=== PATIENT | male | born 1940 | race Hispanic/Latino ===

== ENCOUNTER → 2017-05-19 | Outpatient (CLI) | payer OTHER ==
[~2017-05-19] MED LIST: ASPI-1197 PO; MULT-1259 PO; OLME1TAB7 PO; TAMS0.4C32 PO
[2017-05-19 10:54] LABS: CREATININE 1.2 mg/dL (0.5-1.5)
== END | disposition home or self-care (01) ==
LOC: LAB 09:49
PROVIDERS: ATTEND Neurological Surgery
DX: M48.062 Spinal stenosis, lumbar region with neurogenic claudication (principal)
CPT/HCPCS: 36415; 82565; 84520

== ENCOUNTER → 2017-06-06 | Outpatient (CLI) | payer OTHER | END | disposition home or self-care (01) | LOC: RAH 08:47 | PROVIDERS: ATTEND Neurological Surgery | DX: I70.213 Atherosclerosis of native arteries of extremities with intermittent claudication, bilateral legs (principal); M48.062 Spinal stenosis, lumbar region with neurogenic claudication | CPT/HCPCS: 93925 ==

== ENCOUNTER 2017-11-17 13:30 | Observation (INO) | payer OTHER, MEDICARE ==
[~2017-11-17] VITALS: Ht 175.3 cm; Wt 113.4 kg
[~2017-11-17 13:30] MED LIST changes: -ASPI-1197 PO; -MULT-1259 PO
[2017-11-17 14:48] LABS: BASOPHILS % (AUTO) 0.6 % (0.0-5.0); EOSINOPHILS % (AUTO) 1.3 % (0.0-8.0); HEMATOCRIT 45.7 % (42-54); LYMPHOCYTES % (AUTO) 16.5 % (21.0-51.0); MEAN CORPUSCULAR HEMOGLOBIN 29.5 pg (27.0-33.0); MEAN CORPUSCULAR HGB CONC 33.3 g/dL (32.0-36.0); MEAN CORPUSCULAR VOLUME 88.6 fL (79-99); NEUTROPHILS % (AUTO) 74.6 % (40.0-77.0); PLATELET COUNT (AUTO) 211 K/uL (130-400); RED BLOOD CELL COUNT(AUTO) 5.15 MIL/uL (4.50-6.20); RED CELL DISTRIBUTION WIDTH 13.6 % (11.0-15.5)
[2017-11-17 14:56] LABS: CREATININE 1.1 mg/dL (0.5-1.5); POTASSIUM 4.4 mmol/L (3.5-5.1)
[2017-11-17 15:24] VITALS: BP 140/89
[2017-11-22] VITALS (23 sets, daily range): BP systolic 94–149; BP diastolic 56–89
[2017-11-22] MEDS ORDERED: LACTATED RINGERS 1000ML 1,000 ML IV ONE (06:46)
[2017-11-22] MEDS ORDERED: CEFAZOLIN SODIUM 1 GM VIAL ONE ×3 (06:47→11:38)
[2017-11-22] MEDS ORDERED: DURAMORPH PF1 MG/ML 10ML AMP IV ONE (06:50)
[2017-11-22] MEDS ORDERED: BACITRACIN 50,000 UNIT VIAL ONE (06:51)
[2017-11-22] MEDS ORDERED: THROMBIN-JMI 20000 UNIT KIT TP ONE (06:51)
[2017-11-22] MEDS ORDERED: LIDOCAINE PF 2% 5ML ABBOJECT ONE (06:56)
[2017-11-22] MEDS ORDERED: MIDAZOLAM HCL 1 MG/ML 2ML VIAL ONE (06:57)
[2017-11-22] MEDS ORDERED: DEXAMETHASONE SOD PHOSPHATE 10MG/ML 1ML VIAL ONE ×2 (06:57→07:00)
[2017-11-22] MEDS ORDERED: PROPOFOL 10 MG/ML 20ML VIAL IV ONE ×2 (06:57→10:26)
[2017-11-22] MEDS ORDERED: FENTANYL CITRATE PF 50 MCG/1 ML 2ML VIAL ONE ×4 (06:58→11:13)
[2017-11-22] MEDS ORDERED: ONDANSETRON HCL 4 MG/2 ML VIAL ONE ×2 (06:58→11:35)
[2017-11-22] MEDS ORDERED: NEOSTIGMINE 5MG/5ML SYR IV ONE (06:58)
[2017-11-22] MEDS ORDERED: ROCURONIUM 10MG/1ML SYR 10 MG/ML ML ONE (06:58)
[2017-11-22 06:59] LABS: BASOPHILS % (AUTO) 0.7 % (0.0-5.0); EOSINOPHILS % (AUTO) 1.7 % (0.0-8.0); HEMATOCRIT 43.6 % (42-54); LYMPHOCYTES % (AUTO) 17.9 % (21.0-51.0); MEAN CORPUSCULAR HEMOGLOBIN 30.2 pg (27.0-33.0); MEAN CORPUSCULAR HGB CONC 33.8 g/dL (32.0-36.0); MEAN CORPUSCULAR VOLUME 89.3 fL (79-99); MONOCYTES % (AUTO) 7.6 % (3.0-13.0); NEUTROPHILS % (AUTO) 72.1 % (40.0-77.0); PLATELET COUNT (AUTO) 197 K/uL (130-400); RED BLOOD CELL COUNT(AUTO) 4.88 MIL/uL (4.50-6.20); RED CELL DISTRIBUTION WIDTH 13.6 % (11.0-15.5); WHITE BLOOD COUNT (AUTO) 9.7 K/uL (4.8-10.8)
[2017-11-22] MEDS ORDERED: GLYCOPYRROLATE 1 MG/5 ML SYRINGE ONE (06:59)
[2017-11-22] MEDS ORDERED: SUCCINYLCHOLINE CHLORIDE 20 MG/ML 10 ML VIAL ONE (07:01)
[2017-11-22] MEDS ORDERED: BUPIVACAINE/EPI/PF 0.25% 30ML VIAL IJ ONE (07:14)
[2017-11-22] MEDS ORDERED: EPHEDRINE SULFATE 50 MG/ML AMPULE ONE (07:56)
[2017-11-22] MEDS ORDERED: CEFAZOLIN SODIUM 1 GM VIAL IVP ONE (08:00)
[2017-11-22] MEDS ORDERED: PHENYLEPHRINE HCL 10 MG/ML 1ML VIAL IV ONE ×2 (08:15→09:58)
[2017-11-22] MEDS ORDERED: LIDOCAINE HCL 2% JELLY 5 ML ONE (08:15)
[2017-11-22] MEDS: LACTATED RINGERS 1000ML 1,000 ML IV SCH (11:48)
[2017-11-22] MEDS ORDERED: HYDROCODONE/ACETAMINOPHEN 5/325 MG TAB PO PRN (12:00)
[2017-11-22] MEDS ORDERED: SODIUM CHLORIDE 0.9% 10 ML VIAL IVP PRN (12:00)
[2017-11-22] MEDS ORDERED: MORPHINE SULFATE 2 MG/ML 1ML SYG IVP PRN (12:00)
[2017-11-22] MEDS ORDERED: PROMETHAZINE HCL 25 MG/ML 1ML AMPULE IM PRN (12:00)
[2017-11-22] MEDS: DEXAMETHASONE SOD PHOSPHATE 4 MG/ML 1ML VIAL IVP SCH ×2 (13:53→23:43)
[2017-11-22] MEDS ORDERED: CEFAZOLIN SODIUM 1 GM VIAL IVP SCH (14:15)
[2017-11-23 00:08] VITALS: BP 148/85
[2017-11-23] MEDS: LACTATED RINGERS 1000ML 1,000 ML IV SCH (01:10)
[2017-11-23 04:55] VITALS: BP 149/74
[2017-11-23] MEDS: DEXAMETHASONE SOD PHOSPHATE 4 MG/ML 1ML VIAL IVP SCH (05:33)
[2017-11-23 08:00] VITALS: BP 156/81
[2017-11-23] MEDS ORDERED: TAMSULOSIN HCL 0.4 MG CAP.ER.24H PO SCH (09:00)
[2017-11-23] MEDS ORDERED: OLMESARTAN PO SCH (09:00)
[2017-11-23] MEDS ORDERED: HYDROCHLOROTHIAZIDE PO SCH (09:00)
== END 2017-11-23 11:25 | disposition home or self-care (01) ==
LOC: DAHIP 11-22 06:16 → 4BH 11-22 12:41
PROVIDERS: ADMIT Neurological Surgery; ATTEND Neurological Surgery
DX: M48.07 Spinal stenosis, lumbosacral region (principal); M54.16 Radiculopathy, lumbar region
CPT/HCPCS: 36415 ×2; 63047; 63048 ×2; 72020; 80048; 85025 ×2; 96374; 96375; 96376 ×2; A4344; A4510; A4600 ×2; A4649 ×4; G0378 ×30; J0330; J0690 ×3; J1100 ×6; J2001; J2250; J2274; J2370 ×2; J2405 ×2; J2704 ×2; J2710; J3010 ×4; J3490 ×3; J7030; J7120 ×2

== ENCOUNTER 2020-09-24 07:32 | Day surgery (SDC) | payer OTHER, MEDICARE ==
[2020-09-18 13:19] LABS: BASOPHILS % (AUTO) 0.6 % (0.0-5.0); EOSINOPHILS % (AUTO) 2.3 % (0.0-8.0); HEMATOCRIT 44.4 % (42-54); LYMPHOCYTES % (AUTO) 14.7 % (21.0-51.0); MEAN CORPUSCULAR HEMOGLOBIN 29.5 pg (27.0-33.0); MEAN CORPUSCULAR HGB CONC 32.7 g/dL (32.0-36.0); MEAN CORPUSCULAR VOLUME 90.4 fL (79-99); MONOCYTES % (AUTO) 7.6 % (3.0-13.0); PLATELET COUNT (AUTO) 260 K/uL (130-400); RED BLOOD CELL COUNT(AUTO) 4.91 MIL/uL (4.50-6.20); RED CELL DISTRIBUTION WIDTH 13.9 % (11.0-15.5); WHITE BLOOD COUNT (AUTO) 10.2 K/uL (4.8-10.8)
[2020-09-18 13:19] LABS: APPEARANCE,URINE Clear (CLEAR); BILIRUBIN,URINE Negative (NEGATIVE); COLOR,URINE Yellow (YELLOW); GLUCOSE, URINE (UA) Negative (NEGATIVE); KETONES,URINE Negative (NEGATIVE); LEUKOCYTE ESTERASE ,URINE Moderate (NEGATIVE); NITRATE,URINE Negative (NEGATIVE); OCCULT BLOOD,URINE Small (NEGATIVE); PH,URINE 6.5 (5.0-8.0); PROTEIN,URINE POS 1+ mg/dL (NEGATIVE)
[2020-09-18 13:26] LABS: POTASSIUM 4.7 mmol/L (3.5-5.1)
[2020-09-18 13:29] LABS: INR 1.15 (0.85-1.15); PROTHROMBIN TIME 12.4 SEC (9.6-11.6)
[2020-09-18 13:30] LABS: PARTIAL THROMBOPLASTIN TIME 31.7 SEC (26.3-35.5)
[2020-09-18 13:56] LABS: BACTERIA,URINE Few /HPF (None Seen); YEAST,URINE BUDDING Moderate /HPF (None Seen)
[2020-09-18 13:57] LABS: CALCIUM OXALATE CRYSTALS,UR Few /LPF (None Seen); MUCUS,URINE Few LPF (None Seen); SQUAMOUS EPITHELIAL CELL,UR Rare /HPF (0-2)
[2020-09-20 09:02] VITALS: BP 142/77
[~2020-09-24] VITALS: Ht 176.5 cm; Wt 105.1 kg
[2020-09-24] VITALS (16 sets, daily range): BP systolic 138–170; BP diastolic 74–90
[~2020-09-24 07:32] MED LIST changes: +AEC81 PO; +LEVO500P29 IV
[2020-09-24] MEDS ORDERED: LACTATED RINGERS 1000ML 1,000 ML IV ONE (07:42)
[2020-09-24] MEDS ORDERED: GENTAMICIN SULFATE IM SCH (08:00)
[2020-09-24] MEDS ORDERED: [UNRECOGNIZED DRUG - OTHER] IM SCH (08:00)
[2020-09-24] MEDS ORDERED: SUCCINYLCHOLINE 200MG/10ML SYR ONE (08:22)
[2020-09-24] MEDS ORDERED: MIDAZOLAM HCL 1 MG/ML 2ML VIAL ONE (08:22)
[2020-09-24] MEDS ORDERED: LIDOCAINE PF 100MG/5ML (2%) SYRINGE 5ML ONE ×2 (08:22→08:24)
[2020-09-24] MEDS ORDERED: GLYCOPYRROLATE 1 MG/5 ML SYRINGE ONE (08:22)
[2020-09-24] MEDS ORDERED: DEXAMETHASONE SOD PHOSPHATE 10MG/ML 1ML VIAL ONE (08:22)
[2020-09-24] MEDS ORDERED: FENTANYL CITRATE PF 50 MCG/1 ML 2ML VIAL ONE (08:23)
[2020-09-24] MEDS ORDERED: NEOSTIGMINE 5MG/5ML SYR IV ONE (08:23)
[2020-09-24] MEDS ORDERED: ROCURONIUM 10MG/1ML SYR 10 MG/ML ML ONE ×2 (08:23→09:52)
[2020-09-24] MEDS ORDERED: PROPOFOL 10 MG/ML 20ML VIAL IV ONE (08:23)
[2020-09-24] MEDS: CEFTRIAXONE 1G VIAL IVP ONE ×2 (08:40→08:44)
[2020-09-24] MEDS ORDERED: LEVOFLOXACIN 500 MG TABLET PO SCH (09:00)
[2020-09-24] MEDS ORDERED: ALBUTEROL INHALER 90MCG/INH IH ONE (09:55)
== END 2020-09-24 12:20 | disposition home or self-care (01) ==
LOC: DAH 07:32
PROVIDERS: ATTEND Urology
DX: N40.1 Benign prostatic hyperplasia with lower urinary tract symptoms (principal); Z20.822 Contact with and (suspected) exposure to COVID-19; N32.0 Bladder-neck obstruction; N32.89 Other specified disorders of bladder; N39.498 Other specified urinary incontinence; R35.1 Nocturia; I10 Essential (primary) hypertension; Z98.890 Other specified postprocedural states; Z79.01 Long term (current) use of anticoagulants
CPT/HCPCS: 36415; 52648; 71045; 80048; 81001; 85025; 85610; 85730; 87088; 87426; 93005; A4215; A4221; A4222; A4223; A4354; A4358; A4663; A6260; C1758; J0330; J0696; J1100; J1580; J2001 ×2; J2250; J2704; J2710; J3010; J3490; J7030; J7120